=== PATIENT | male | born 1950 | race Caucasian/White ===

== ENCOUNTER 2020-07-20 21:13 | Emergency (ER) | payer MEDICARE, BC ==
[2020-07-20] MEDS ORDERED: Sodium Chloride 0.9% 2.5 ML Syringe FLUSH PRN (21:17)
[2020-07-20] MEDS ORDERED: Sodium Chloride 0.9% 10 ML Syringe FLUSH PRN (21:17)
[2020-07-20] MEDS ORDERED: Aspirin 81 MG Tab.Chew PO ONE (21:17)
--- NOTE | 2020-07-20 21:20 | EDM.PDOC ---
ED HPI GENERAL MEDICAL PROBLEM - General Stated Complaint: CHEST PAIN Time Seen by Provider: 07/20/20 21:14 - History of Present Illness INITIAL COMMENTS - FREE TEXT/NARRATIVE: History of present illness: [] This patient reports chest pressure or pain. It started half an hour before arrival while he was sitting down playing cards. Is better with activity. Its not associated with diaphoresis nausea or shortness of breath. The pain is rather constant was not terribly severe and is much better when he moves around. The patient is a non-smoker and takes only aspirin and nonsteroidal anti- inflammatory medicine. He is not treated for diabetes cholesterol or blood pressure. The patient's father in his 40s of a myocardial infarction but his father was a smoker. Review of systems: As per history of present illness and below otherwise all systems reviewed and negative. Past medical history: As per history of present illness and as reviewed below otherwise noncontributory. Surgical history: As per history of present illness and as reviewed below otherwise noncontributory. Social history: No reported history of drug or alcohol abuse. Family history: As per history of present illness and as reviewed below otherwise noncontribu tory. Physical exam: Constitutional - well developed, well-nourished and in no acute distress HEENT - normocephalic, no evidence of trauma - external nose and mouth normal - no mass in neck and no JVD - mucosae moist EYES - full EOM, PERRL, no icterus - no evidence of inflammation, injection, or drainage Respiratory - no respiratory distress, equal bilateral expansion, lungs clear to auscultation and no abnormal lung sounds Cardiovascular - Regular Rhythm with S1 and S2 appreciated and no murmur, gallop or rub. GI - abdomen soft without distension or organomegaly - normal bowel sounds - no guard or rebound Musculoskeletal no gross deformity of long bones or joints - no tenderness, swelling or edema Neurologic - Alert and oriented times four - CN II-XII grossly intact - motor sensory and coordination symmetrically normal Psychiatric - appropriate mood and affect with normal thought content Hematologic - No petechiae or purpura - mucosa appropriate color and sclera not pale - normal nail bed color and refill Integument - no rash or evidence of trauma - normal turgor Diagnostics: [] Therapeutics: [] Impression: [] Plan: [] Definitive disposition and diagnosis as appropriate pending reevaluation and review of above. chest Pain Score (Numeric/FACES): 7 - Related Data Allergies Allergy/AdvReac Type Severity Reaction Status Date / Time No Known Allergies Allergy Verified 07/20/20 21:22 Home Meds: Home Meds Aspirin [Jasmeet Chewable Aspirin] 81 mg PO DAILY 09/07/14 [History] Celecoxib [CeleBREX] 100 mg PO DAILY 09/07/14 [History] Glucosamine [Glucosamine Sulfate] 0 07/20/20 [History] LORazepam [Ativan] 0.5 mg PO TID PRN #12 tab 07/20/20 [Rx] Omeprazole Magnesium [Prilosec Otc] 20 mg PO DAILY #30 tablet. 07/20/20 [Rx] ED ROS GENERAL - Review of Systems Review Of Systems: Comprehensive ROS is negative, except as noted in HPI. ED EXAM, GENERAL - Physical Exam Exam: See Below Free Text/Narrative:: My physical exam is in the HPI #1 Interpretation EKG Interpretation Comments: EG -normal sinus rhythm heart rate 84 and OK interval 162. [place] is 27. The QT duration is 421. It is 1 or more PVCs. QRS is essentially normal with minimal ST depression in V3 and V4. ST and T are otherwise normal. Impression cannot rule out mild ischemia in the anterior leads. No obvious acute injury no prior for comparison Course - Vital Signs Last Recorded V/S: Last Vital Signs Temp 36.6 C 07/20/20 21:24 Pulse 78 07/20/20 22:29 Resp 18 07/20/20 22:29 BP 141/75 H 07/20/20 23:01 Pulse Ox 97 07/20/20 22:29 - Orders/Labs/Meds Orders: Active Orders 24 hr Category Date Time Status EKG Documentation Completion [RC] AM Care 07/20/20 21:17 Active Sodium Chloride 0.9% [Saline Flush] Med 07/20/20 21:17 Active 10 ml FLUSH ASDIRECTED PRN Sodium Chloride 0.9% [Saline Flush] Med 07/20/20 21:17 Active 2.5 ml FLUSH ASDIRECTED PRN Saline Lock Insert [OM.PC] Stat Oth 07/20/20 21:17 Ordered Medication Orders Sodium Chloride (Saline Flush) 10 ml FLUSH ASDIRECTED PRN PRN Reason: Keep Vein Open Last Admin: 07/20/20 21:56 Dose: 10 ml Documented by: MOSES Sodium Chloride (Saline Flush) 2.5 ml FLUSH ASDIRECTED PRN PRN Reason: Keep Vein Open Last Admin: 07/20/20 21:56 Dose: 2.5 ml Documented by: MOSES Labs: Laboratory Tests 07/20/20 07/20/20 07/20/20 Range/Units 21:23 21:23 22:55 WBC 9.06 (4.0-11.0) K/uL RBC 5.07 (4.50-5.90) M/uL Hgb 16.5 (13.0-17.0) g/dL Hct 49.7 (38.0-50.0) % MCV 98.0 (80.0-98.0) fL MCH 32.5 H (27.0-32.0) pg MCHC 33.2 (31.0-37.0) g/dL RDW Std Deviation 50.7 (28.0-62.0) fl RDW Coeff of Todd 14 (11.0-15.0) % Plt Count 205 (150-400) K/uL MPV 12.00 (7.40-12.00) fL Neut % (Auto) 56.6 (48.0-80.0) % Lymph % (Auto) 22.7 (16.0-40.0) % [place] % (Auto) 15.2 H (0.0-15.0) % Eos % (Auto) 5.2 (0.0-7.0) % Baso % (Auto) 0.3 (0.0-1.5) % Neut # (Auto) 5.1 (1.4-5.7) K/uL Lymph # (Auto) 2.1 (0.6-2.4) K/uL [place] # (Auto) 1.4 H (0.0-0.8) K/uL Eos # (Auto) 0.5 (0.0-0.7) K/uL Baso # (Auto) 0.0 (0.0-0.1) K/uL Nucleated RBC % 0.0 /100WBC Nucleated RBCs # 0 K/uL Sodium 145 (136-148) mmol/L Potassium 3.5 (3.5-5.1) mmol/L Chloride 103 (98-107) mmol/L Carbon Dioxide 30.4 (21.0-32.0) mmol/L BUN 22 H (7.0-18.0) mg/dL Creatinine 1.2 (0.8-1.3) mg/dL Est Cr Clr Drug Dosing 71.16 mL/min Estimated GFR (MDRD) 59.7 ml/min Glucose 89 (74-106) mg/dL Calcium 9.2 (8.5-10.1) mg/dL Total Bilirubin 0.9 (0.2-1.0) mg/dL AST 20 (15-37) IU/L ALT 28 (14-63) IU/L Alkaline Phosphatase 74 (46-116) U/L Troponin I < 0.050 < 0.050 (0.000-0.056) ng/mL Total Protein 7.8 (6.4-8.2) g/dL Albumin 4.3 (3.4-5.0) g/dL Globulin 3.5 (2.6-4.0) g/dL Albumin/Globulin Ratio 1.2 (0.9-1.6) Meds: Medications Generic Name Dose Route Start Last Admin Trade Name Freq PRN Reason Stop Dose Admin Sodium Chloride 10 ml 07/20/20 21:17 07/20/20 21:56 Saline Flush FLUSH 10 ml ASDIRECTED PRN Administration Keep Vein Open Sodium Chloride 2.5 ml 07/20/20 21:17 07/20/20 21:56 Saline Flush FLUSH 2.5 ml ASDIRECTED PRN Administration Keep Vein Open Discontinued Medications Generic Name Dose Route Start Last Admin Trade Name Danilo PRN Reason Stop Dose Admin Aspirin 243 mg 07/20/20 21:17 07/20/20 21:34 Aspirin PO 07/20/20 21:18 81 mg ONETIME ONE Administration Al Hydroxide/Mg Hydroxide 15 0 ml 07/20/20 22:20 07/20/20 22:28 ml/ Lidocaine HCl 5 ml PO 07/20/20 22:21 1 each ONETIME ONE Administration Lorazepam 0.5 mg 07/20/20 21:46 07/20/20 21:55 Ativan IVPUSH 07/20/20 21:47 0.5 mg ONETIME ONE Administration Departure - Departure Time of Disposition: 23:30 Disposition: Home, Self-Care 01 Condition: Good Clinical Impression: Chest pain, GERD (gastroesophageal reflux disease) - Discharge Information Prescriptions: LORazepam [Ativan] 0.5 mg PO TID PRN #12 tab PRN Reason: Anxiety Omeprazole Magnesium [Prilosec Otc] 20 mg PO DAILY #30 tablet. Instructions: Indigestion, [id number], Nonspecific Chest Pain, Adult, [id number] Referrals: Zak Tello MD [Primary Care Provider] - Additional Instructions: [facility] - Primary Care [address] [place] [id number] [address] The following information is given to patients seen in the emergency department who are being discharged to home. This information is to outline your options for follow-up care. We provide all patients seen in our emergency department with a follow-up referral. The need for follow-up, as well as the timing and circumstances, are variable depending upon the specifics of your emergency department visit. If you don't have a primary care physician on staff, we will provide you with a referral. We always advise you to contact your personal physician following an emergency department visit to inform them of the circumstance of the visit and for follow-up with them and/or the need for any referrals to a consulting specialist. The emergency department will also refer you to a specialist when appropriate. This referral assures that you have the opportunity for follow-up care with a specialist. All of these measure are taken in an effort to provide you with optimal care, which includes your follow-up. Under all circumstances we always encourage you to contact your private physician who remains a resource for coordinating your care. When calling for follow-up care, please make the office aware that this follow-up is from your recent emergency room visit. If for any reason you are refused follow-up, please contact the [facility] Emergency Department at and asked to speak to the emergency department charge nurse. Sepsis Event Note (ED) - Focused Exam Vital Signs: Vital Signs Temp Pulse Resp BP Pulse Ox 07/20/20 23:01 141/75 H 07/20/20 22:29 78 18 141/88 H 97 07/20/20 22:09 73 18 168/93 H 97 07/20/20 21:24 36.6 C 87 20 176/107 H 98 - My Orders Last 24 Hours: My Active Orders 07/20/20 21:17 EKG Documentation Completion [RC] AM Sodium Chloride 0.9% [Saline Flush] 10 ml FLUSH ASDIRECTED PRN Sodium Chloride 0.9% [Saline Flush] 2.5 ml FLUSH ASDIRECTED PRN Saline Lock Insert [OM.PC] Stat - Assessment/Plan Last 24 Hours: My Active Orders 07/20/20 21:17 EKG Documentation Completion [RC] AM Sodium Chloride 0.9% [Saline Flush] 10 ml FLUSH ASDIRECTED PRN Sodium Chloride 0.9% [Saline Flush] 2.5 ml FLUSH ASDIRECTED PRN Saline Lock Insert [OM.PC] Stat
[2020-07-20] MEDS ORDERED: LORazepam 2 MG/ML SDV IVPUSH ONE (21:46)
[2020-07-20 22:17] LABS: CARBON DIOXIDE,CO2 30.4 mmol/L (21.0-32.0); CHLORIDE,CL 103 mmol/L (98-107); GLUCOSE RANDOM 89 mg/dL (74-106); POTASSIUM,K 3.5 mmol/L (3.5-5.1); SODIUM,NA 145 mmol/L (136-148)
[2020-07-20] MEDS ORDERED: Alum Hydrox/Mag Hydrox/Simeth 15 ML, Lidocaine 2% 5 ML PO ONE ×2 (22:20)
[2020-07-20 22:22] LABS: BLOOD UREA NITROGEN,BUN 22 mg/dL (7.0-18.0)
--- NOTE | 2020-07-20 22:24 | CR ---
INDICATION: Chest pain COMPARISON: None TECHNIQUE: Single-view portable chest radiograph FINDINGS: TUBES AND LINES: None. HEART AND MEDIASTINUM: The heart size is normal. The mediastinal contour appears normal for patient age. LUNGS AND PLEURAL SPACES: The lungs appear normal.The pleural spaces are unremarkable. OSSEOUS STRUCTURES: Age-appropriate appearance. No acute focal finding. IMPRESSION: Normal single-view portable chest radiograph. Dictated by Benny Arvizu MD @ Jul 20 2020 10:21PM Signed by Dr. Benny Arvizu @ Jul 20 2020 10:22PM
[2020-07-20 23:51] VITALS: BP 147/87; PULSE 71
== END 2020-07-20 23:45 | disposition home or self-care (01) ==
LOC: MW.ED 21:13
DX: K21.9 Gastro-esophageal reflux disease without esophagitis (principal)
CPT/HCPCS: 36415; 71045; 80053; 84484; 85025; 93005; 96374; 99285; A9270; J2060; 93010; 99284

== ENCOUNTER 2020-07-27 18:14 | Emergency (ER) | payer MEDICARE, BC ==
--- NOTE | 2020-07-27 18:48 | EDM.PDOC ---
<Casa Nowak - Last Filed: 07/27/20 20:22> ED HPI GENERAL MEDICAL PROBLEM - General Chief Complaint: Chest Pain Stated Complaint: CHEST PAIN Time Seen by Provider: 07/27/20 18:25 Source of Information: Reports: Patient History Limitations: Reports: No Limitations - History of Present Illness INITIAL COMMENTS - FREE TEXT/NARRATIVE: Patient is a 70-year-old male who presents today for chest pain. Patient was at the cardiology clinic with cardiology states that he had abnormal stress test with some inferior and septal wall reversible dynamic changes. He wanted patient come to the ER because patient is now having more frequent chest pain. Patient that has been taking 1 nitro a day to the chest pain. Nitro no me to scale the chest pain. Patient states he is scheduled to see someone and Sukhjinder for possible catheterization. Patient currently on examination has no chest pain. Patient states that sometimes when he gets stressed the chest pain comes more. Patient denies any chest pain or exertion or shortness of breath. chest Pain Score (Numeric/FACES): 3 - Related Data Allergies Allergy/AdvReac Type Severity Reaction Status Date / Time No Known Allergies Allergy Verified 07/20/20 21:22 Home Meds: Home Meds Aspirin [Jasmeet Chewable Aspirin] 81 mg PO DAILY 09/07/14 [History] Celecoxib [CeleBREX] 100 mg PO DAILY 09/07/14 [History] Glucosamine [Glucosamine Sulfate] 0 07/20/20 [History] LORazepam [Ativan] 0.5 mg PO TID PRN #12 tab 07/20/20 [Rx] Isosorbide Mononitrate [Imdur] 30 mg PO DAILY 07/27/20 [History] Nitroglycerin [Nitrostat] 0.4 mg SL ASDIRECTED PRN 07/27/20 [History] timoloL maleate [Timoptic 0.25% Opth Soln] 5 ml EYEBOTH ASDIRECTED PRN 07/27/20 [History] Past Medical History HEENT History: Reports: Cataract, Hard of Hearing, Impaired Vision Cardiovascular History: Reports: Arrhythmia, Other (See Below) Other Cardiovascular History: positive stress test 07/25/2020 Respiratory History: Reports: None Gastrointestinal History: Reports: None Genitourinary History: Reports: None Musculoskeletal History: Reports: None Neurological History: Reports: None Psychiatric History: Reports: None Endocrine/Metabolic History: Reports: None Hematologic History: Reports: None Immunologic History: Reports: None Oncologic (Cancer) History: Reports: None Dermatologic History: Reports: None - Infectious Disease History Infectious Disease History: Reports: Chicken Pox, Influenza - Past Surgical History Head Surgeries/Procedures: Reports: None HEENT Surgical History: Reports: None GI Surgical History: Reports: Cholecystectomy Musculoskeletal Surgical History: Reports: Hip Replacement Other Musculoskeletal Surgeries/Procedures:: right hip replacement Other Oncologic Surgeries/Procedures: pt reports skin cancer removal in [facility] Social & Family History - Family History Family Medical History: No Pertinent Family History ED ROS GENERAL - Review of Systems Review Of Systems: See Below Constitutional: Reports: No Symptoms HEENT: Reports: No Symptoms Respiratory: Reports: No Symptoms Cardiovascular: Reports: No Symptoms Endocrine: Reports: No Symptoms GI/Abdominal: Reports: No Symptoms : Reports: No Symptoms Musculoskeletal: Reports: No Symptoms Skin: Reports: No Symptoms Neurological: Reports: No Symptoms Psychiatric: Reports: No Symptoms Hematologic/Lymphatic: Reports: No Symptoms Immunologic: Reports: No Symptoms ED EXAM, GENERAL - Physical Exam Exam: See Below Exam Limited By: No Limitations General Appearance: Alert, No Apparent Distress Eye Exam: Bilateral Eye: EOMI, PERRL Respiratory/Chest: No Respiratory Distress, Lungs Clear Cardiovascular: Normal Peripheral Pulses, Regular Rate, Rhythm GI/Abdominal: Normal Bowel Sounds, Soft, Non-Tender Extremities: Normal Range of Motion Neurological: Alert, Oriented, CN II-XII Intact, Normal Cognition, Normal Gait Course - Re-Assessments/Exams Free Text/Narrative Re-Assessment/Exam: 07/27/20 20:20 Pt to be signed out to on coming physician. Departure - Departure Time of Disposition: 20:21 Disposition: DC/Tfer to Acute Hospital 02 Condition: Good Clinical Impression: Chest pain, Acute coronary syndrome, Unstable angina, 2019 novel coronavirus disease (COVID-19) - Discharge Information *PRESCRIPTION DRUG MONITORING PROGRAM REVIEWED*: Not Applicable *COPY OF PRESCRIPTION DRUG MONITORING REPORT IN PATIENT ZHAO: Not Applicable Referrals: Zak Tello MD [Primary Care Provider] - Forms: ED Department Discharge Sepsis Event Note (ED) - Evaluation Sepsis Screening Result: No Definite Risk - Assessment/Plan Admission H&P: Please use this note as an admission H&P Plan: Patient is a 70-year-old male presents today for chest pain. Patient currently has no chest pain but due to him having a abnormal stress test and increased frequency of his chest pain his detention deputy wanted him checked out today. Patient has elevated heart score as well will send labs troponin and EKG and reassess. Pt's detention deputy in [facility] is Dr. Ramon <Maynor Valdivia - Last Filed: 07/28/20 02:09> ED HPI GENERAL MEDICAL PROBLEM - History of Present Illness INITIAL COMMENTS - FREE TEXT/NARRATIVE: 7:30 PM: Signout received by me at 7 PM. Chart reviewed and patient examined. Patient presents ER today secondary to evaluation for increasing chest pain/unstable angina. Patient reports over the last several days he is required utilization of increased amounts of nitroglycerin than usual. Patient reports that he has been using approximately 2 sublingual nitroglycerin daily to relieve alleviate his chest discomfort. Patient reports that the pain feels like a discomfort in his chest. Patient denies any pain rating down his jaw, arm, back. Patient denies any diaphoresis. Patient admits to some shortness of breath. Patient reports that the pain is not exertional in nature and occurs at times while he is at rest. Patient reports that he has been evaluated by Dr. Gomez here at [place] and had a abnormal stress test that revealed reversible changes in the inferior septal wall. Patient is scheduled to go to [facility] for a cardiac catheterization on Thursday. Patient reports that he was called by his detention deputy Dr. Gomez and instructed to go to the ED for further evaluation secondary to his increased chest pain and increased use of his nitroglycerin. EKG: As interpreted by ER physician: Shea: Nonspecific ST-T wave abnormalities Normal axis No evidence of ST elevation VA Normal sinus rhythm with multiple PACs and compensatory pauses and heart rate of 99. Chest Xray: Normal cardiac silhouette No infiltrates or effusions identified. No PTX No evidence of acute bony fracture. As interpreted by ER MD: Shea Clements case with Dr. Gomez who feels that the patient needs to be transferred to [facility] for further evaluation of his chest pain. He feels that the patient will likely need an urgent cardiac catheterization given his unstable angina and persistent episodes of chest pain. He does not feel admission to [facility] would be appropriate at this time given the abnormal exercise stress test that he had this week. Pts coronavirus test is positive. Patient did have 2 episodes of intermittent chest pain here in the ED that was resolved with nitroglycerin x2 tablets. Patient had repeat EKG without any changes from the initial presenting E KG. Case has been discussed with Dr. Virk at [facility] who has agreed to assist us with transfer of patient and inpatient level of care for his chest pain to the coronavirus unit. Critical Care: The high probability of sudden, clinically significant deterioration in the patient's condition required the highest level of my pr eparedness to intervene urgently. The services I provided to this patient were to treat and/or prevent clinically significant deterioration. Services included the following: chart data review, reviewing nursing notes and/or old charts, documentation time, internet marketing consultant collaboration regarding findings and treatment options, medication orders and management, direct patient care, vital sign assessments and ordering, interpreting and reviewing diagnostic studies/lab tests. Aggregate critical care time includes only time during which I was engaged inwork directly related to the patient's care, as described above, whether at the bedside or elsewhere in the Emergency Department. It did not include time spent performing other reported procedures or the services of residents, students, nurses or physician assistants. Critical Care Time: 35 minutes #1 Interpretation EKG Interpretation Comments: EKG: As interpreted by ER physician: Shea: Nonspecific ST-T wave abnormalities Normal axis No evidence of ST elevation VA Normal sinus rhythm with multiple PACs at a rate of 99 bpm #2 Interpretation EKG Interpretation Comments: EKG: As interpreted by ER physician: Shea: Nonspecific ST-T wave abnormalities Normal axis No evidence of ST elevation VA Normal sinus rhythm heart rate of 88 with multiple PVCs and PACs. #3 Interpretation EKG Interpretation Comments: EKG: As interpreted by ER physician: Shea: Nonspecific ST-T wave abnormalities Normal axis No evidence of ST elevation VA Normal sinus rhythm heart rate of 84 with 2 PVCs and multiple PACs. Course - Vital Signs Last Recorded V/S: Last Vital Signs Temp 98.2 F 07/28/20 01:33 Pulse 103 H 07/28/20 01:33 Resp 16 07/28/20 01:33 BP 135/87 07/28/20 01:33 Pulse Ox 94 L 07/28/20 01:33 - Orders/Labs/Meds Orders: Active Orders 24 hr Category Date Time Status EKG Documentation Completion [RC] STAT Care 07/27/20 18:26 Active Heparin Sodium/0.45% NaCl [Heparin 25,000 Units in 1/2 Med 07/27/20 23:15 Active NS 500 ML] 500 ml IV TITRATE Medication Orders Heparin Sodium/Sodium Chloride (Heparin 25,000 Units In 1/2 Ns 500 Ml) 500 mls @ 26.671 mls/hr IV TITRATE CHRISTY; Protocol Last Admin: 07/27/20 23:28 Dose: 12 units/kg/hr, 26.671 mls/hr Documented by: HARVEY Cosigned by: [id number] Labs: Laboratory Tests 07/27/20 07/27/20 07/27/20 Range/Units 18:30 18:30 18:30 WBC 8.35 (4.0-11.0) K/uL RBC 4.72 (4.50-5.90) M/uL Hgb 15.3 (13.0-17.0) g/dL Hct 46.0 (38.0-50.0) % MCV 97.5 (80.0-98.0) fL MCH 32.4 H (27.0-32.0) pg MCHC 33.3 (31.0-37.0) g/dL RDW Std Deviation 51.7 (28.0-62.0) fl RDW Coeff of Todd 14 (11.0-15.0) % Plt Count 144 L (150-400) K/uL MPV 12.00 (7.40-12.00) fL Neut % (Auto) 63.9 (48.0-80.0) % Lymph % (Auto) 16.3 (16.0-40.0) % [place] % (Auto) 14.3 (0.0-15.0) % Eos % (Auto) 5.3 (0.0-7.0) % Baso % (Auto) 0.2 (0.0-1.5) % Neut # (Auto) 5.3 (1.4-5.7) K/uL Lymph # (Auto) 1.4 (0.6-2.4) K/uL [place] # (Auto) 1.2 H (0.0-0.8) K/uL Eos # (Auto) 0.4 (0.0-0.7) K/uL Baso # (Auto) 0.0 (0.0-0.1) K/uL Nucleated RBC % 0.0 /100WBC Nucleated RBCs # 0 K/uL INR 1.03 APTT 25.2 (18.6-31.3) SEC Sodium 143 (136-148) mmol/L Potassium 3.6 (3.5-5.1) mmol/L Chloride 104 (98-107) mmol/L Carbon Dioxide 25.9 (21.0-32.0) mmol/L BUN 16 (7.0-18.0) mg/dL Creatinine 1.2 (0.8-1.3) mg/dL Est Cr Clr Drug Dosing 71.16 mL/min Estimated GFR (MDRD) 59.7 ml/min Glucose 98 (74-106) mg/dL Calcium 9.2 (8.5-10.1) mg/dL Troponin I < 0.050 (0.000-0.056) ng/mL SARS-CoV-2 RNA (CHERRIE) (NEGATIVE) 07/27/20 Range/Units 20:45 WBC (4.0-11.0) K/uL RBC (4.50-5.90) M/uL Hgb (13.0-17.0) g/dL Hct (38.0-50.0) % MCV (80.0-98.0) fL MCH (27.0-32.0) pg MCHC (31.0-37.0) g/dL RDW Std Deviation (28.0-62.0) fl RDW Coeff of [place] (11.0-15.0) % Plt Count (150-400) K/uL MPV (7.40-12.00) fL Neut % (Auto) (48.0-80.0) % Lymph % (Auto) (16.0-40.0) % [place] % (Auto) (0.0-15.0) % Eos % (Auto) (0.0-7.0) % Baso % (Auto) (0.0-1.5) % Neut # (Auto) (1.4-5.7) K/uL Lymph # (Auto) (0.6-2.4) K/uL [place] # (Auto) (0.0-0.8) K/uL Eos # (Auto) (0.0-0.7) K/uL Baso # (Auto) (0.0-0.1) K/uL Nucleated RBC % /100WBC Nucleated RBCs # K/uL INR APTT (18.6-31.3) SEC Sodium (136-148) mmol/L Potassium (3.5-5.1) mmol/L Chloride (98-107) mmol/L Carbon Dioxide (21.0-32.0) mmol/L BUN (7.0-18.0) mg/dL Creatinine (0.8-1.3) mg/dL Est Cr Clr Drug Dosing mL/min Estimated GFR (MDRD) ml/min Glucose (74-106) mg/dL Calcium (8.5-10.1) mg/dL Troponin I (0.000-0.056) ng/mL SARS-CoV-2 RNA (CHERRIE) POSITIVE H (NEGATIVE) Meds: Medications Generic Name Dose Route Start Last Admin Trade Name Danilo PRN Reason Stop Dose Admin Heparin Sodium/Sodium Chloride 500 mls @ 26.671 mls/hr 07/27/20 23:15 07/27/20 23:28 Heparin 25,000 Units In 1/2 Ns 500 Ml IV 12 units/kg/hr TITRATE CHRISTY 26.671 mls/hr Administration Protocol 12 UNITS/KG/HR Discontinued Medications Generic Name Dose Route Start Last Admin Trade Name Gianlucaq PRN Reason Stop Dose Admin Heparin Sodium (Porcine) 4,000 units 07/27/20 23:15 07/27/20 23:25 Heparin Sodium IVPUSH 07/27/20 23:16 4,000 units BOLUS ONE Administration Protocol Nitroglycerin 0.4 mg 07/27/20 22:50 07/28/20 00:03 Nitrostat SL 07/27/20 22:51 Not Given ONETIME ONE Departure - Departure Condition: Good Sepsis Event Note (ED) - Focused Exam Vital Signs: Vital Signs Temp Pulse Resp BP Pulse Ox 07/28/20 01:33 98.2 F 103 H 16 135/87 94 L 07/28/20 00:55 97.4 F 87 17 134/82 94 L 07/27/20 22:49 20 171/110 H 94 L 07/27/20 22:00 86 17 155/102 H 96 07/27/20 21:30 82 17 128/94 H 96 12/04/20 20:45 89 17 139/86 96 07/27/20 20:15 65 17 157/88 H 96 07/27/20 19:45 91 17 146/100 H 99 07/27/20 19:04 98.9 F 71 20 146/90 H 96 07/27/20 18:26 97.2 F 81 18 158/90 H 96 - My Orders Last 24 Hours: My Active Orders 07/27/20 23:15 Heparin Sodium/0.45% NaCl [Heparin 25,000 Units in 1/2 NS 500 ML] 500 ml IV TITRATE - Assessment/Plan Last 24 Hours: My Active Orders 07/27/20 23:15 Heparin Sodium/0.45% NaCl [Heparin 25,000 Units in 1/2 NS 500 ML] 500 ml IV TITRATE
[2020-07-27 19:14] LABS: BLOOD UREA NITROGEN,BUN 16 mg/dL (7.0-18.0); CARBON DIOXIDE,CO2 25.9 mmol/L (21.0-32.0); CHLORIDE,CL 104 mmol/L (98-107); GLUCOSE RANDOM 98 mg/dL (74-106); POTASSIUM,K 3.6 mmol/L (3.5-5.1); SODIUM,NA 143 mmol/L (136-148)
--- NOTE | 2020-07-27 19:47 | CR ---
Indication: Chest pain Comparison: Single view chest July 20, 2020 Technique: PA and Lateral views chest Findings: There is mild hyperinflation and chronic interstitial change. There is no focal consolidation, effusion, or pneumothorax. The cardiomediastinal silhouette is within normal limits. The bony thorax is grossly intact. Impression: Mild chronic interstitial changes without dense consolidation. Dictated by Jan Ac MD @ Jul 27 2020 7:44PM Signed by Dr. Jan Ac @ Jul 27 2020 7:45PM
[2020-07-27] MEDS ORDERED: Nitroglycerin 0.4 MG Tab.SL SL ONE (22:50)
[2020-07-27] MEDS ORDERED: Heparin Sodium 5,000 Units/ML Vial IVPUSH ONE (23:15)
[2020-07-27] MEDS ORDERED: Heparin Sodium/0.45% NaCl 500 ML IV SCH (23:15)
[2020-07-28 01:33] VITALS: BP 135/87; PULSE 103
== END 2020-07-28 01:55 ==
LOC: MW.ED 18:14
DX: U07.1 COVID-19 (principal); I24.9 Acute ischemic heart disease, unspecified
CPT/HCPCS: 36415; 71046; 80048; 84484; 85025; 85610; 85730; 93005; 96365; 96366; 99285; J1644; U0002; 93010; 99291

== ENCOUNTER 2022-07-21 09:23 | Inpatient (IN) | payer MEDICARE, BC ==
[2022-07-21] MEDS ORDERED: Sodium Chloride 0.9% 1,000 ML IV ONE (09:36)
[2022-07-21] MEDS ORDERED: Sodium Chloride 0.9% 2.5 ML Syringe FLUSH PRN ×2 (09:36→14:04)
[2022-07-21] MEDS ORDERED: Sodium Chloride 0.9% 10 ML Syringe FLUSH PRN ×2 (09:36→14:04)
[2022-07-21 10:17] LABS: POTASSIUM,K 4.1 mmol/L (3.5-5.1)
[2022-07-21 10:27] LABS: CORONAVIRUS COVID-19 NAA POSITIVE (NEGATIVE); INFLUENZA A NAA NEGATIVE (NEGATIVE); INFLUENZA B NAA NEGATIVE (NEGATIVE); RESPIRATORY SYNCYTIAL VIR NAA NEGATIVE (NEGATIVE)
[2022-07-21] MEDS ORDERED: Acetaminophen 325 MG Tab PO ONE (10:48)
[2022-07-21] MEDS ORDERED: Ondansetron 4 MG/2 ML SDV IVPUSH PRN (14:00)
[2022-07-21] MEDS: PAXLOVID PO SCH (14:58)
[2022-07-21] MEDS: Enoxaparin 40 MG/0.4 ML Syringe SUBCUT SCH (14:58)
[2022-07-21] MEDS: Acetaminophen 325 MG Tab PO PRN (18:26)
[2022-07-21] MEDS: Donepezil 10 MG Tab PO SCH (20:13)
[2022-07-21] MEDS: atorvaSTATin 40 MG Tab PO SCH (20:13)
[2022-07-21] MEDS: Latanoprost 0.005% Ophth Soln 2.5 ML Bottle EYEBOTH SCH (20:14)
[2022-07-22] MEDS: Acetaminophen 325 MG Tab PO PRN ×2 (00:46→11:36)
[2022-07-22] MEDS: Pantoprazole 40 MG Tab.CR PO SCH (06:38)
[2022-07-22] MEDS: PAXLOVID PO SCH ×3 (06:39→21:48)
[2022-07-22 07:09] LABS: POTASSIUM,K 3.5 mmol/L (3.5-5.1)
[2022-07-22] MEDS: Metoprolol Succinate 25 MG Tab.ER PO SCH (08:56)
[2022-07-22] MEDS: Aspirin 81 MG Tab.Chew PO SCH (08:56)
[2022-07-22] MEDS: Phosphorus #1 250 MG Tab PO SCH ×3 (08:56→17:26)
[2022-07-22] MEDS: Prasugrel Hcl [Effient] 10 MG Tablet PO SCH (08:57)
[2022-07-22] MEDS ORDERED: Benzonatate 100 MG Cap PO PRN (09:03)
[2022-07-22] MEDS ORDERED: guaiFENesin/Dextromethorphan 100-10 MG/5 ML Soln 10 ML Cup PO PRN (09:03)
[2022-07-22] MEDS ORDERED: Benzocaine/Cetylpyridinium/Menthol Lozenge MUCMEM PRN (09:03)
[2022-07-22] MEDS: Enoxaparin 40 MG/0.4 ML Syringe SUBCUT SCH (14:15)
[2022-07-22] MEDS: atorvaSTATin 40 MG Tab PO SCH (21:46)
[2022-07-22] MEDS: Donepezil 10 MG Tab PO SCH (21:46)
[2022-07-22] MEDS: Latanoprost 0.005% Ophth Soln 2.5 ML Bottle EYEBOTH SCH (21:50)
[2022-07-23] MEDS: Phosphorus #1 250 MG Tab PO SCH (00:01)
[2022-07-23] MEDS: Pantoprazole 40 MG Tab.CR PO SCH (06:49)
[2022-07-23 08:53] LABS: POTASSIUM,K 3.9 mmol/L (3.5-5.1)
[2022-07-23 08:54] LABS: CARBON DIOXIDE,CO2 24.3 mmol/L (21.0-32.0)
[2022-07-23] MEDS: PAXLOVID PO SCH ×2 (09:00→21:22)
[2022-07-23] MEDS: Metoprolol Succinate 25 MG Tab.ER PO SCH (09:01)
[2022-07-23] MEDS: Prasugrel Hcl [Effient] 10 MG Tablet PO SCH (09:01)
[2022-07-23] MEDS: Aspirin 81 MG Tab.Chew PO SCH (09:01)
[2022-07-23] MEDS: Enoxaparin 40 MG/0.4 ML Syringe SUBCUT SCH (14:42)
[2022-07-23] MEDS: Donepezil 10 MG Tab PO SCH (21:21)
[2022-07-23] MEDS: Latanoprost 0.005% Ophth Soln 2.5 ML Bottle EYEBOTH SCH (21:22)
[2022-07-24] MEDS: Pantoprazole 40 MG Tab.CR PO SCH (06:32)
[2022-07-24 07:11] LABS: CARBON DIOXIDE,CO2 26.1 mmol/L (21.0-32.0); POTASSIUM,K 3.7 mmol/L (3.5-5.1)
[2022-07-24] MEDS: Metoprolol Succinate 25 MG Tab.ER PO SCH (08:47)
[2022-07-24] MEDS: Aspirin 81 MG Tab.Chew PO SCH (08:47)
[2022-07-24] MEDS: PAXLOVID PO SCH (08:49)
[2022-07-24] MEDS: Prasugrel Hcl [Effient] 10 MG Tablet PO SCH (08:49)
[2022-07-24 11:45] VITALS: BP 99/64; PULSE 64
[2022-07-24] MEDS: Enoxaparin 40 MG/0.4 ML Syringe SUBCUT SCH (15:14)
== END 2022-07-24 15:09 | disposition home or self-care (01) | DRG 178 ==
LOC: MW.ED 09:23 → MW.MS 11:43
PROVIDERS: ADMIT Internal Medicine; ATTEND Internal Medicine
DX: U07.1 COVID-19 (principal); E86.0 Dehydration; R53.1 Weakness; R26.89 Other abnormalities of gait and mobility; G93.49 Other encephalopathy; I25.10 Atherosclerotic heart disease of native coronary artery without angina pectoris; I10 Essential (primary) hypertension; R26.81 Unsteadiness on feet; G31.84 Mild cognitive impairment of uncertain or unknown etiology; H54.7 Unspecified visual loss; H91.90 Unspecified hearing loss, unspecified ear; I49.9 Cardiac arrhythmia, unspecified; Z95.5 Presence of coronary angioplasty implant and graft; Z86.19 Personal history of other infectious and parasitic diseases; Z79.899 Other long term (current) drug therapy; I25.2 Old myocardial infarction; Z79.82 Long term (current) use of aspirin; Z90.49 Acquired absence of other specified parts of digestive tract
CPT/HCPCS: 0241U; 36415; 70450; 71045; 80048; 80053; 81001; 82550; 82607; 83735; 84100; 85025; 93005; 97110; 97162; 97530; 96360; 99285-25; A9270-GY; J1650; J3490; J7030

== ENCOUNTER 2024-04-09 09:40 | Inpatient (IN) | payer MEDICARE, BC ==
[2024-04-09 10:36] LABS: APPEARANCE,URINE CLEAR; BILIRUBIN,URINE NEGATIVE (NEGATIVE); COLOR,URINE YELLOW; GLUCOSE,URINE NEGATIVE (NEGATIVE); KETONES,URINE NEGATIVE (NEGATIVE); LEUKOCYTE ESTERASE,URINE NEGATIVE (NEGATIVE); NITRITE,URINE NEGATIVE (NEGATIVE); OCCULT BLOOD,URINE TRACE-INTACT (NEGATIVE); PH,URINE 6.5 (5.0-8.0); PROTEIN,URINE NEGATIVE (NEGATIVE)
[2024-04-09] MEDS: Erythromycin Base 0.5% Ophth Oint 1 GM Tube EYEBOTH ONE (10:38)
[2024-04-09] MEDS: Sodium Chloride 0.9% 1,000 ML IV ONE (10:38)
[2024-04-09 10:45] LABS: BACTERIA,URINE RARE (NEGATIVE); EPITHELIAL CELLS,URINE RARE (NONE-FEW); RBC,URINE 0-2 (0-2/HPF); WBC,URINE 0-1 (0-5/HPF)
[2024-04-09 10:51] LABS: CORONAVIRUS COVID-19 NAA POSITIVE (NEGATIVE); INFLUENZA A NAA NEGATIVE (NEGATIVE); INFLUENZA B NAA NEGATIVE (NEGATIVE)
[2024-04-09 10:54] LABS: BASOPHILS ABSOLUTE AUTO 0.03 K/uL (0.00-0.20); BASOPHILS PERCENT AUTO 0.3 % (0.0-1.0); EOSINOPHILS ABSOLUTE AUTO 0.05 K/uL (0.00-0.45); EOSINOPHILS PERCENT AUTO 0.5 % (0.0-6.0); HEMATOCRIT 49.3 % (42.0-52.0); HEMOGLOBIN 16.7 g/dL (14.0-18.0); IMMATURE GRAN ABSOLUTE AUTO 0.05 K/uL (0.00-0.05); IMMATURE GRAN PERCENT AUTO 0.5 % (0.0-0.4); LYMPHOCYTES ABSOLUTE AUTO 0.54 K/uL (1.00-4.80); LYMPHOCYTES PERCENT AUTO 5.4 % (24.0-44.0); MEAN CORPUSCULAR HEMOGLOBIN 32.3 pg (28.0-32.0); MEAN CORPUSCULAR HGB CONC 33.9 g/dL (32.0-36.0); MEAN CORPUSCULAR VOLUME 95.4 fL (83.0-99.0); MEAN PLATELET VOLUME 10.8 fL (9.4-12.4); MONOCYTES ABSOLUTE AUTO 0.88 K/uL (0.00-0.80); MONOCYTES PERCENT AUTO 8.7 % (0.0-8.0); NEUTROPHILS ABSOLUTE AUTO 8.54 K/uL (1.80-7.70); NEUTROPHILS PERCENT AUTO 84.6 % (41.0-71.0); PLATELET COUNT,PLT 141 K/uL (150-400); RED BLOOD CELL COUNT 5.17 M/uL (4.52-5.90); WHITE BLOOD CELL COUNT,WBC 10.09 K/uL (3.9-11.3)
[2024-04-09 11:21] LABS: A/G RATIO 1.2 (0.9-1.6); ALBUMIN 4.1 g/dL (3.4-5.0); BILIRUBIN TOTAL 1.9 mg/dL (0.2-1.0); CALCIUM 9.4 mg/dL (8.5-10.1); CARBON DIOXIDE,CO2 30.6 mmol/L (21.0-32.0); CREATININE 1.2 mg/dL (0.8-1.3); EST CRCL DRUG DOSING (CG) 59.28 mL/min; POTASSIUM,K 4.4 mmol/L (3.5-5.1); PROTEIN TOTAL,TP 7.4 g/dL (6.4-8.2)
[2024-04-09] MEDS ORDERED: Ondansetron 4 MG Tab.DIS PO PRN (11:54)
[2024-04-09] MEDS ORDERED: Polyethylene Glycol 3350 Powder 17 GM Packet PO PRN (11:54)
[2024-04-09] MEDS: Acetaminophen 325 MG Tab PO PRN (14:31)
[2024-04-09] MEDS ORDERED: Nitroglycerin 0.4 MG Tab.SL SL PRN (15:08)
[2024-04-09] MEDS: Nirmatrelvir/Ritonavir 300 MG/100 MG Dosepak PO SCH (16:48)
[2024-04-09] MEDS: Enoxaparin 40 MG/0.4 ML Syringe SUBCUT SCH ×2 (16:48→19:48)
[2024-04-09] MEDS: Donepezil 5 MG Tab PO SCH (19:30)
[2024-04-09] MEDS: Latanoprost 0.005% Ophth Soln 2.5 ML Bottle EYEBOTH SCH (19:35)
[2024-04-09] MEDS: Sodium Chloride 0.9% 1,000 ML IV SCH (19:55)
[2024-04-09] MEDS: atorvaSTATin 40 MG Tab PO SCH (20:46)
[2024-04-10] MEDS: Nirmatrelvir/Ritonavir 300 MG/100 MG Dosepak PO SCH (08:57)
[2024-04-10] MEDS: Metoprolol Succinate 25 MG Tab.ER PO SCH (08:59)
[2024-04-10] MEDS: Prasugrel Hcl [Effient] 10 MG Tablet PO SCH (09:00)
[2024-04-10 09:07] LABS: BASOPHILS ABSOLUTE AUTO 0.04 K/uL (0.00-0.20); BASOPHILS PERCENT AUTO 0.5 % (0.0-1.0); HEMATOCRIT 48.2 % (42.0-52.0); HEMOGLOBIN 16.7 g/dL (14.0-18.0); IMMATURE GRAN ABSOLUTE AUTO 0.03 K/uL (0.00-0.05); IMMATURE GRAN PERCENT AUTO 0.4 % (0.0-0.4); LYMPHOCYTES PERCENT AUTO 10.6 % (24.0-44.0); MEAN CORPUSCULAR HEMOGLOBIN 32.2 pg (28.0-32.0); MEAN CORPUSCULAR HGB CONC 34.6 g/dL (32.0-36.0); MEAN CORPUSCULAR VOLUME 92.9 fL (83.0-99.0); MEAN PLATELET VOLUME 10.9 fL (9.4-12.4); MONOCYTES ABSOLUTE AUTO 0.97 K/uL (0.00-0.80); MONOCYTES PERCENT AUTO 12.8 % (0.0-8.0); NEUTROPHILS ABSOLUTE AUTO 5.74 K/uL (1.80-7.70); NEUTROPHILS PERCENT AUTO 75.7 % (41.0-71.0); PLATELET COUNT,PLT 143 K/uL (150-400); RED BLOOD CELL COUNT 5.19 M/uL (4.52-5.90); WHITE BLOOD CELL COUNT,WBC 7.58 K/uL (3.9-11.3)
[2024-04-10 09:37] LABS: A/G RATIO 1.1 (0.9-1.6); ALBUMIN 3.7 g/dL (3.4-5.0); BILIRUBIN TOTAL 1.9 mg/dL (0.2-1.0); CALCIUM 9.1 mg/dL (8.5-10.1); CARBON DIOXIDE,CO2 26.9 mmol/L (21.0-32.0); CREATININE 1.2 mg/dL (0.8-1.3); EST CRCL DRUG DOSING (CG) 59.28 mL/min; POTASSIUM,K 3.8 mmol/L (3.5-5.1); PROTEIN TOTAL,TP 7.2 g/dL (6.4-8.2)
[2024-04-10] MEDS: Albuterol/Ipratropium 3.0-0.5 MG/3 ML Neb Soln NEB SCH (11:58)
[2024-04-10] MEDS: LORazepam 0.5 MG Tab PO PRN (16:06)
[2024-04-10] MEDS: traZODone 50 MG Tab PO SCH (19:34)
[2024-04-10] MEDS: Melatonin 3 MG Tab PO SCH (19:35)
[2024-04-10] MEDS: Benzonatate 100 MG Cap PO PRN (19:35)
[2024-04-11 06:10] LABS: BASOPHILS ABSOLUTE AUTO 0.04 K/uL (0.00-0.20); BASOPHILS PERCENT AUTO 0.4 % (0.0-1.0); EOSINOPHILS ABSOLUTE AUTO 0.02 K/uL (0.00-0.45); EOSINOPHILS PERCENT AUTO 0.2 % (0.0-6.0); HEMATOCRIT 45.3 % (42.0-52.0); HEMOGLOBIN 15.9 g/dL (14.0-18.0); IMMATURE GRAN ABSOLUTE AUTO 0.04 K/uL (0.00-0.05); IMMATURE GRAN PERCENT AUTO 0.4 % (0.0-0.4); LYMPHOCYTES ABSOLUTE AUTO 0.89 K/uL (1.00-4.80); LYMPHOCYTES PERCENT AUTO 9.6 % (24.0-44.0); MEAN CORPUSCULAR HEMOGLOBIN 32.7 pg (28.0-32.0); MEAN CORPUSCULAR HGB CONC 35.1 g/dL (32.0-36.0); MEAN CORPUSCULAR VOLUME 93.2 fL (83.0-99.0); MEAN PLATELET VOLUME 11.4 fL (9.4-12.4); MONOCYTES ABSOLUTE AUTO 1.14 K/uL (0.00-0.80); MONOCYTES PERCENT AUTO 12.2 % (0.0-8.0); NEUTROPHILS ABSOLUTE AUTO 7.18 K/uL (1.80-7.70); NEUTROPHILS PERCENT AUTO 77.2 % (41.0-71.0); PLATELET COUNT,PLT 138 K/uL (150-400); RED BLOOD CELL COUNT 4.86 M/uL (4.52-5.90); WHITE BLOOD CELL COUNT,WBC 9.31 K/uL (3.9-11.3)
[2024-04-11 06:44] LABS: ALBUMIN 3.3 g/dL (3.4-5.0); CARBON DIOXIDE,CO2 26.8 mmol/L (21.0-32.0); CREATININE 1.3 mg/dL (0.8-1.3); EST CRCL DRUG DOSING (CG) 54.72 mL/min; POTASSIUM,K 3.9 mmol/L (3.5-5.1); PROTEIN TOTAL,TP 6.4 g/dL (6.4-8.2)
[2024-04-11 06:45] LABS: A/G RATIO 1.1 (0.9-1.6); BILIRUBIN TOTAL 1.3 mg/dL (0.2-1.0)
[2024-04-11] MEDS: Isosorbide Mononitrate 30 MG Tab.ER PO SCH (12:09)
[2024-04-11] MEDS ORDERED: Sodium Chloride 0.9% 2.5 ML Syringe FLUSH PRN (13:11)
[2024-04-11] MEDS ORDERED: Sodium Chloride 0.9% 10 ML Syringe FLUSH PRN (13:11)
[2024-04-11] MEDS: Haloperidol Lactate 5 MG/ML SDV IM ONE (17:27)
[2024-04-12] MEDS: Isosorbide Mononitrate 30 MG Tab.ER PO SCH ×2 (01:04→05:54)
[2024-04-12 06:02] LABS: BASOPHILS ABSOLUTE AUTO 0.03 K/uL (0.00-0.20); BASOPHILS PERCENT AUTO 0.5 % (0.0-1.0); EOSINOPHILS ABSOLUTE AUTO 0.07 K/uL (0.00-0.45); EOSINOPHILS PERCENT AUTO 1.1 % (0.0-6.0); HEMATOCRIT 44.9 % (42.0-52.0); HEMOGLOBIN 15.3 g/dL (14.0-18.0); IMMATURE GRAN ABSOLUTE AUTO 0.01 K/uL (0.00-0.05); IMMATURE GRAN PERCENT AUTO 0.2 % (0.0-0.4); LYMPHOCYTES ABSOLUTE AUTO 1.34 K/uL (1.00-4.80); LYMPHOCYTES PERCENT AUTO 20.5 % (24.0-44.0); MEAN CORPUSCULAR HEMOGLOBIN 32.2 pg (28.0-32.0); MEAN CORPUSCULAR HGB CONC 34.1 g/dL (32.0-36.0); MEAN CORPUSCULAR VOLUME 94.5 fL (83.0-99.0); MEAN PLATELET VOLUME 11.3 fL (9.4-12.4); MONOCYTES ABSOLUTE AUTO 0.95 K/uL (0.00-0.80); MONOCYTES PERCENT AUTO 14.5 % (0.0-8.0); NEUTROPHILS ABSOLUTE AUTO 4.14 K/uL (1.80-7.70); NEUTROPHILS PERCENT AUTO 63.2 % (41.0-71.0); PLATELET COUNT,PLT 127 K/uL (150-400); RED BLOOD CELL COUNT 4.75 M/uL (4.52-5.90); WHITE BLOOD CELL COUNT,WBC 6.54 K/uL (3.9-11.3)
[2024-04-12 06:30] LABS: CALCIUM 8.8 mg/dL (8.5-10.1); CARBON DIOXIDE,CO2 26.6 mmol/L (21.0-32.0); CREATININE 1.4 mg/dL (0.8-1.3); EST CRCL DRUG DOSING (CG) 50.81 mL/min; POTASSIUM,K 3.4 mmol/L (3.5-5.1)
[2024-04-12] MEDS: Potassium Chloride 20 MEQ Tab.ER PO ONE (10:53)
[2024-04-12] MEDS ORDERED: Albuterol 0.083% 2.5 MG/3 ML Neb Soln NEB PRN (13:22)
[2024-04-13 05:57] LABS: BASOPHILS ABSOLUTE AUTO 0.04 K/uL (0.00-0.20); BASOPHILS PERCENT AUTO 0.7 % (0.0-1.0); EOSINOPHILS ABSOLUTE AUTO 0.16 K/uL (0.00-0.45); EOSINOPHILS PERCENT AUTO 2.9 % (0.0-6.0); HEMATOCRIT 42.3 % (42.0-52.0); HEMOGLOBIN 14.4 g/dL (14.0-18.0); IMMATURE GRAN ABSOLUTE AUTO 0.01 K/uL (0.00-0.05); IMMATURE GRAN PERCENT AUTO 0.2 % (0.0-0.4); LYMPHOCYTES ABSOLUTE AUTO 1.22 K/uL (1.00-4.80); LYMPHOCYTES PERCENT AUTO 21.8 % (24.0-44.0); MEAN CORPUSCULAR HEMOGLOBIN 32.1 pg (28.0-32.0); MEAN CORPUSCULAR VOLUME 94.4 fL (83.0-99.0); MEAN PLATELET VOLUME 11.5 fL (9.4-12.4); MONOCYTES ABSOLUTE AUTO 0.74 K/uL (0.00-0.80); MONOCYTES PERCENT AUTO 13.2 % (0.0-8.0); NEUTROPHILS ABSOLUTE AUTO 3.42 K/uL (1.80-7.70); NEUTROPHILS PERCENT AUTO 61.2 % (41.0-71.0); PLATELET COUNT,PLT 138 K/uL (150-400); RED BLOOD CELL COUNT 4.48 M/uL (4.52-5.90); WHITE BLOOD CELL COUNT,WBC 5.59 K/uL (3.9-11.3)
[2024-04-13 06:26] LABS: CALCIUM 9.2 mg/dL (8.5-10.1); CARBON DIOXIDE,CO2 30.6 mmol/L (21.0-32.0); CREATININE 1.4 mg/dL (0.8-1.3); EST CRCL DRUG DOSING (CG) 50.81 mL/min; POTASSIUM,K 3.5 mmol/L (3.5-5.1)
[2024-04-13 06:37] LABS: MAGNESIUM 2.2 mg/dL (1.8-2.4)
[2024-04-13 10:57] VITALS: BP 138/96; PULSE 63
== END 2024-04-13 12:00 | disposition home health service (06) | DRG 178 ==
LOC: MW.ED 09:40 → MW.MS 12:59
PROVIDERS: ADMIT Family Medicine; ATTEND Family Medicine
DX: U07.1 COVID-19 (principal); F03.B11 Unspecified dementia, moderate, with agitation; G93.49 Other encephalopathy; F03.B3 Unspecified dementia, moderate, with mood disturbance; I25.2 Old myocardial infarction; Z75.8 Other problems related to medical facilities and other health care; Z66 Do not resuscitate; M19.90 Unspecified osteoarthritis, unspecified site; K21.9 Gastro-esophageal reflux disease without esophagitis; I10 Essential (primary) hypertension; R26.81 Unsteadiness on feet; I25.10 Atherosclerotic heart disease of native coronary artery without angina pectoris; Z96.649 Presence of unspecified artificial hip joint; Z79.01 Long term (current) use of anticoagulants; Z79.82 Long term (current) use of aspirin; Z95.5 Presence of coronary angioplasty implant and graft; Z90.49 Acquired absence of other specified parts of digestive tract; Z87.891 Personal history of nicotine dependence; Z79.899 Other long term (current) drug therapy
CPT/HCPCS: 0240U; 36415; 71045; 80048; 80053; 81001; 83735; 84484; 85025; 93005; 94640; 96360; 97162; 97530; 99285; 93010; A9270-GY; J1630; J1650; J7030; J7620-GY

== ENCOUNTER 2025-04-28 14:13 | Emergency (ER) | payer BC, MEDICARE ==
[2025-04-28 14:27] LABS: BASOPHILS ABSOLUTE AUTO 0.05 K/uL (0.00-0.20); BASOPHILS PERCENT AUTO 0.5 % (0.0-1.0); EOSINOPHILS ABSOLUTE AUTO 0.10 K/uL (0.00-0.45); EOSINOPHILS PERCENT AUTO 1.1 % (0.0-6.0); IMMATURE GRAN ABSOLUTE AUTO 0.03 K/uL (0.00-0.05); IMMATURE GRAN PERCENT AUTO 0.3 % (0.0-0.4); LYMPHOCYTES ABSOLUTE AUTO 0.90 K/uL (1.00-4.80); LYMPHOCYTES PERCENT AUTO 9.6 % (24.0-44.0); MEAN PLATELET VOLUME 11.3 fL (9.4-12.4); MONOCYTES ABSOLUTE AUTO 0.85 K/uL (0.00-0.80); MONOCYTES PERCENT AUTO 9.0 % (0.0-8.0); NEUTROPHILS ABSOLUTE AUTO 7.49 K/uL (1.80-7.70); NEUTROPHILS PERCENT AUTO 79.5 % (41.0-71.0); NRBC ABSOLUTE 0.00 K/uL (0.00-0.02); NRBC PERCENT 0.0 /100WBC (0.0-0.2); PLATELET COUNT,PLT 164 K/uL (150-400); RED BLOOD CELL COUNT 4.51 M/uL (4.52-5.90); WHITE BLOOD CELL COUNT,WBC 9.42 K/uL (3.9-11.3)
[2025-04-28 14:32] VITALS: BP 142/79
[2025-04-28 14:48] LABS: INR 1.04 (0.86-1.11)
[2025-04-28 14:57] LABS: APPEARANCE,URINE CLEAR; GLUCOSE,URINE NEGATIVE (NEGATIVE); OCCULT BLOOD,URINE NEGATIVE (NEGATIVE)
[2025-04-28 15:07] LABS: BLOOD UREA NITROGEN,BUN 25.0 mg/dL (7.0-18.0); CARBON DIOXIDE,CO2 29.5 mmol/L (21.0-32.0); CHLORIDE,CL 106.0 mmol/L (98-107); CREATININE 1.3 mg/dL (0.8-1.3); EST CRCL DRUG DOSING (CG) 59.35 mL/min; GLUCOSE RANDOM 103.0 mg/dL (74-106); POTASSIUM,K 4.4 mmol/L (3.5-5.1); SODIUM,NA 144.0 mmol/L (136-148)
[2025-04-28 15:16] LABS: ESTIMATED GFR 57.0 mL/min (>60)
[2025-04-28 16:57] VITALS: PULSE 83
== END 2025-04-28 16:58 | disposition home health service (06) ==
LOC: MW.ED 14:13
DX: Z04.3 Encounter for examination and observation following other accident (principal); I25.2 Old myocardial infarction; Z79.82 Long term (current) use of aspirin; Z79.899 Other long term (current) drug therapy; Z90.49 Acquired absence of other specified parts of digestive tract
CPT/HCPCS: 36415; 70450; 70450-26; 72125; 72125-26; 73502-26-LT; 73502-LT; 80048; 81003; 83735; 84484; 85025; 85610; 93005; 99284; 99285

== ENCOUNTER 2025-05-18 12:42 | Inpatient (IN) | payer MEDICARE ==
[2025-05-18] MEDS ORDERED: Sodium Chloride 0.9% 2.5 ML Syringe FLUSH PRN ×2 (12:53→16:38)
[2025-05-18] MEDS ORDERED: Sodium Chloride 0.9% 10 ML Syringe FLUSH PRN ×2 (12:53→16:38)
[2025-05-18 13:27] LABS: MEAN PLATELET VOLUME 11.4 fL (9.4-12.4); NRBC ABSOLUTE 0.00 K/uL (0.00-0.02); NRBC PERCENT 0.0 /100WBC (0.0-0.2); PLATELET COUNT,PLT 182 K/uL (150-400); RED BLOOD CELL COUNT 5.36 M/uL (4.52-5.90); WHITE BLOOD CELL COUNT,WBC 17.28 K/uL (3.9-11.3)
[2025-05-18 13:35] LABS: INR 1.08 (0.86-1.11); PTT,PARTIAL THROMBOPLSTIN TIME 27.5 SEC (23.9-30.7)
[2025-05-18 13:56] LABS: A/G RATIO 0.8 (0.9-1.6); ALANINE AMINOTRANSFERASE,ALT 34.0 IU/L (14-63); ASPARTATE AMNIOTRANSFERASE,AST 37.0 IU/L (15-37); BILIRUBIN TOTAL 2.8 mg/dL (0.2-1.0); BLOOD UREA NITROGEN,BUN 34.0 mg/dL (7.0-18.0); CARBON DIOXIDE,CO2 27.5 mmol/L (21.0-32.0); CHLORIDE,CL 106.0 mmol/L (98-107); CREATININE 1.6 mg/dL (0.8-1.3); EST CRCL DRUG DOSING (CG) 48.22 mL/min; GLUCOSE RANDOM 146.0 mg/dL (74-106); POTASSIUM,K 3.6 mmol/L (3.5-5.1); PROTEIN TOTAL,TP 7.8 g/dL (6.4-8.2); SODIUM,NA 147.0 mmol/L (136-148)
[2025-05-18 14:00] LABS: ESTIMATED GFR 44.0 mL/min (>60); LACTIC ACID 1.8 mmol/L (0.4-2.0)
[2025-05-18 14:03] LABS: BASOPHILS ABSOLUTE MAN 0.00 K/uL (0.00-0.20); BASOPHILS PERCENT MAN 0 % (0-1); EOSINOPHILS ABSOLUTE MAN 0.00 K/uL (0.00-0.45); EOSINOPHILS PERCENT MAN 0 % (0-6); LYMPHOCYTES ABSOLUTE MAN 0.35 K/uL (1.00-4.80); LYMPHOCYTES PERCENT MAN 2 % (24-44); MONOCYTES ABSOLUTE MAN 2.25 K/uL (0.00-0.80); MONOCYTES PERCENT MAN 13 % (0-8); SEG NEUTROPHILS ABSOLUTE MAN 14.69 K/uL (1.80-7.70); SEG NEUTROPHILS PERCENT MAN 85 % (41-71)
[2025-05-18 14:16] LABS: GLUCOSE,URINE NEGATIVE (NEGATIVE); OCCULT BLOOD,URINE LARGE (NEGATIVE)
[2025-05-18 14:34] LABS: APPEARANCE,URINE HAZY
[2025-05-18 14:35] LABS: EPITHELIAL CELLS,URINE RARE (NONE-FEW)
[2025-05-18] MEDS: Iopamidol 755 MG/ML 500 ML Multipack Bottle IVPUSH STA (14:53)
[2025-05-18] MEDS: cefTRIAXone 1 GM in Water For Injection, Sterile 10 ML IVPUSH ONE ×2 (15:59→17:21)
[2025-05-18] MEDS ORDERED: Ondansetron 4 MG/2 ML SDV IVPUSH PRN (16:38)
[2025-05-18] MEDS: Pneumococcal Polyvalent-23 Vaccine 0.5 ML SDV IM ONE (19:14)
[2025-05-19 05:28] LABS: BASOPHILS ABSOLUTE AUTO 0.05 K/uL (0.00-0.20); BASOPHILS PERCENT AUTO 0.4 % (0.0-1.0); EOSINOPHILS ABSOLUTE AUTO 0.31 K/uL (0.00-0.45); EOSINOPHILS PERCENT AUTO 2.6 % (0.0-6.0); IMMATURE GRAN ABSOLUTE AUTO 0.05 K/uL (0.00-0.05); IMMATURE GRAN PERCENT AUTO 0.4 % (0.0-0.4); LYMPHOCYTES ABSOLUTE AUTO 0.99 K/uL (1.00-4.80); LYMPHOCYTES PERCENT AUTO 8.4 % (24.0-44.0); MEAN PLATELET VOLUME 11.5 fL (9.4-12.4); MONOCYTES ABSOLUTE AUTO 1.35 K/uL (0.00-0.80); MONOCYTES PERCENT AUTO 11.5 % (0.0-8.0); NEUTROPHILS ABSOLUTE AUTO 9.02 K/uL (1.80-7.70); NEUTROPHILS PERCENT AUTO 76.7 % (41.0-71.0); NRBC ABSOLUTE 0.00 K/uL (0.00-0.02); NRBC PERCENT 0.0 /100WBC (0.0-0.2); PLATELET COUNT,PLT 153 K/uL (150-400); RED BLOOD CELL COUNT 4.34 M/uL (4.52-5.90); WHITE BLOOD CELL COUNT,WBC 11.77 K/uL (3.9-11.3)
[2025-05-19 05:49] LABS: BLOOD UREA NITROGEN,BUN 31.0 mg/dL (7.0-18.0); CARBON DIOXIDE,CO2 28.2 mmol/L (21.0-32.0); CHLORIDE,CL 114.0 mmol/L (98-107); CREATININE 1.3 mg/dL (0.8-1.3); EST CRCL DRUG DOSING (CG) 59.35 mL/min; GLUCOSE RANDOM 101.0 mg/dL (74-106); PHOSPHORUS 3.1 mg/dL (2.6-4.7); POTASSIUM,K 3.3 mmol/L (3.5-5.1); SODIUM,NA 152.0 mmol/L (136-148)
[2025-05-19 05:50] LABS: ESTIMATED GFR 57.0 mL/min (>60)
[2025-05-19] MEDS: Prasugrel Hcl [Effient] 10 MG Tablet PO SCH (10:32)
[2025-05-19] MEDS: cefTRIAXone 2 GM in Water For Injection, Sterile 20 ML IVPUSH SCH (11:09)
[2025-05-19] MEDS: Potassium Chloride 10 MEQ Tab.ER PO ONE (11:13)
[2025-05-20 06:47] LABS: BASOPHILS ABSOLUTE AUTO 0.05 K/uL (0.00-0.20); BASOPHILS PERCENT AUTO 0.6 % (0.0-1.0); EOSINOPHILS ABSOLUTE AUTO 0.48 K/uL (0.00-0.45); EOSINOPHILS PERCENT AUTO 5.4 % (0.0-6.0); IMMATURE GRAN ABSOLUTE AUTO 0.03 K/uL (0.00-0.05); IMMATURE GRAN PERCENT AUTO 0.3 % (0.0-0.4); LYMPHOCYTES ABSOLUTE AUTO 0.98 K/uL (1.00-4.80); LYMPHOCYTES PERCENT AUTO 11.1 % (24.0-44.0); MEAN PLATELET VOLUME 11.0 fL (9.4-12.4); MONOCYTES ABSOLUTE AUTO 0.89 K/uL (0.00-0.80); MONOCYTES PERCENT AUTO 10.1 % (0.0-8.0); NEUTROPHILS ABSOLUTE AUTO 6.39 K/uL (1.80-7.70); NEUTROPHILS PERCENT AUTO 72.5 % (41.0-71.0); NRBC ABSOLUTE 0.00 K/uL (0.00-0.02); NRBC PERCENT 0.0 /100WBC (0.0-0.2); PLATELET COUNT,PLT 151 K/uL (150-400); RED BLOOD CELL COUNT 4.26 M/uL (4.52-5.90); WHITE BLOOD CELL COUNT,WBC 8.82 K/uL (3.9-11.3)
[2025-05-20 07:13] LABS: BLOOD UREA NITROGEN,BUN 20.0 mg/dL (7.0-18.0); CARBON DIOXIDE,CO2 29.5 mmol/L (21.0-32.0); CHLORIDE,CL 110.0 mmol/L (98-107); CREATININE 0.9 mg/dL (0.8-1.3); EST CRCL DRUG DOSING (CG) 85.73 mL/min; GLUCOSE RANDOM 107.0 mg/dL (74-106); PHOSPHORUS 3.2 mg/dL (2.6-4.7); POTASSIUM,K 2.8 mmol/L (3.5-5.1); SODIUM,NA 148.0 mmol/L (136-148)
[2025-05-20 07:16] LABS: ESTIMATED GFR 89.0 mL/min (>60)
[2025-05-20] MEDS: Prasugrel Hcl [Effient] 10 MG Tablet PO SCH (13:10)
[2025-05-21 07:56] LABS: BASOPHILS ABSOLUTE AUTO 0.04 K/uL (0.00-0.20); BASOPHILS PERCENT AUTO 0.5 % (0.0-1.0); EOSINOPHILS ABSOLUTE AUTO 0.39 K/uL (0.00-0.45); EOSINOPHILS PERCENT AUTO 5.1 % (0.0-6.0); IMMATURE GRAN ABSOLUTE AUTO 0.08 K/uL (0.00-0.05); IMMATURE GRAN PERCENT AUTO 1.0 % (0.0-0.4); LYMPHOCYTES ABSOLUTE AUTO 1.02 K/uL (1.00-4.80); LYMPHOCYTES PERCENT AUTO 13.2 % (24.0-44.0); MEAN PLATELET VOLUME 11.3 fL (9.4-12.4); MONOCYTES ABSOLUTE AUTO 0.87 K/uL (0.00-0.80); MONOCYTES PERCENT AUTO 11.3 % (0.0-8.0); NEUTROPHILS ABSOLUTE AUTO 5.30 K/uL (1.80-7.70); NEUTROPHILS PERCENT AUTO 68.9 % (41.0-71.0); NRBC ABSOLUTE 0.00 K/uL (0.00-0.02); NRBC PERCENT 0.0 /100WBC (0.0-0.2); PLATELET COUNT,PLT 165 K/uL (150-400); RED BLOOD CELL COUNT 4.08 M/uL (4.52-5.90); WHITE BLOOD CELL COUNT,WBC 7.70 K/uL (3.9-11.3)
[2025-05-21 08:19] LABS: A/G RATIO 0.7 (0.9-1.6); ALANINE AMINOTRANSFERASE,ALT 61.0 IU/L (14-63); ASPARTATE AMNIOTRANSFERASE,AST 60.0 IU/L (15-37); BILIRUBIN TOTAL 1.5 mg/dL (0.2-1.0); BLOOD UREA NITROGEN,BUN 16.0 mg/dL (7.0-18.0); CARBON DIOXIDE,CO2 26.9 mmol/L (21.0-32.0); CHLORIDE,CL 109.0 mmol/L (98-107); CREATININE 1.0 mg/dL (0.8-1.3); EST CRCL DRUG DOSING (CG) 77.16 mL/min; ESTIMATED GFR 78.0 mL/min (>60); GLUCOSE RANDOM 125.0 mg/dL (74-106); PHOSPHORUS 3.4 mg/dL (2.6-4.7); POTASSIUM,K 3.1 mmol/L (3.5-5.1); PROTEIN TOTAL,TP 6.0 g/dL (6.4-8.2); SODIUM,NA 146.0 mmol/L (136-148)
[2025-05-22 06:15] LABS: BASOPHILS ABSOLUTE AUTO 0.05 K/uL (0.00-0.20); BASOPHILS PERCENT AUTO 0.6 % (0.0-1.0); EOSINOPHILS ABSOLUTE AUTO 0.39 K/uL (0.00-0.45); EOSINOPHILS PERCENT AUTO 5.1 % (0.0-6.0); IMMATURE GRAN ABSOLUTE AUTO 0.02 K/uL (0.00-0.05); IMMATURE GRAN PERCENT AUTO 0.3 % (0.0-0.4); LYMPHOCYTES ABSOLUTE AUTO 1.00 K/uL (1.00-4.80); LYMPHOCYTES PERCENT AUTO 13.0 % (24.0-44.0); MEAN PLATELET VOLUME 10.9 fL (9.4-12.4); MONOCYTES ABSOLUTE AUTO 0.78 K/uL (0.00-0.80); MONOCYTES PERCENT AUTO 10.1 % (0.0-8.0); NEUTROPHILS ABSOLUTE AUTO 5.47 K/uL (1.80-7.70); NEUTROPHILS PERCENT AUTO 70.9 % (41.0-71.0); NRBC ABSOLUTE 0.00 K/uL (0.00-0.02); NRBC PERCENT 0.0 /100WBC (0.0-0.2); PLATELET COUNT,PLT 157 K/uL (150-400); RED BLOOD CELL COUNT 3.95 M/uL (4.52-5.90); WHITE BLOOD CELL COUNT,WBC 7.71 K/uL (3.9-11.3)
[2025-05-22 06:36] LABS: BLOOD UREA NITROGEN,BUN 13.0 mg/dL (7.0-18.0); CARBON DIOXIDE,CO2 29.1 mmol/L (21.0-32.0); CHLORIDE,CL 107.0 mmol/L (98-107); CREATININE 1.0 mg/dL (0.8-1.3); GLUCOSE RANDOM 109.0 mg/dL (74-106); POTASSIUM,K 3.2 mmol/L (3.5-5.1); SODIUM,NA 145.0 mmol/L (136-148)
[2025-05-22 06:37] LABS: EST CRCL DRUG DOSING (CG) 77.16 mL/min
[2025-05-22 06:42] LABS: ESTIMATED GFR 78.0 mL/min (>60)
[2025-05-22] MEDS: Potassium Chloride 20 MEQ Tab.ER PO ONE (14:37)
[2025-05-22 17:32] VITALS: BP 156/76; PULSE 85
== END 2025-05-22 20:29 | disposition home health service (06) | DRG 690 ==
LOC: MW.ED 12:42 → MW.MS 16:02
PROVIDERS: ADMIT Family Medicine; ATTEND Family Medicine
DX: N10 Acute pyelonephritis (principal); F03.93 Unspecified dementia, unspecified severity, with mood disturbance; E87.0 Hyperosmolality and hypernatremia; R41.82 Altered mental status, unspecified; N28.89 Other specified disorders of kidney and ureter; R19.5 Other fecal abnormalities; Z75.3 Unavailability and inaccessibility of health-care facilities; Z66 Do not resuscitate; E86.0 Dehydration; I25.10 Atherosclerotic heart disease of native coronary artery without angina pectoris; K21.9 Gastro-esophageal reflux disease without esophagitis; I10 Essential (primary) hypertension; N13.9 Obstructive and reflux uropathy, unspecified; E80.6 Other disorders of bilirubin metabolism; E87.6 Hypokalemia; D72.829 Elevated white blood cell count, unspecified; M19.90 Unspecified osteoarthritis, unspecified site; H40.9 Unspecified glaucoma; H91.90 Unspecified hearing loss, unspecified ear; H54.7 Unspecified visual loss; I25.2 Old myocardial infarction; Z96.649 Presence of unspecified artificial hip joint; Z95.5 Presence of coronary angioplasty implant and graft; Z85.828 Personal history of other malignant neoplasm of skin; Z98.49 Cataract extraction status, unspecified eye; Z79.899 Other long term (current) drug therapy; Z79.82 Long term (current) use of aspirin; Z90.49 Acquired absence of other specified parts of digestive tract; Z23 Encounter for immunization
CPT/HCPCS: 36415; 51701; 51702; 70450; 70450-26; 71045; 71045-26; 71260; 71260-26; 74177; 74177-26; 80048; 80053; 81001; 83605; 83690; 83735; 84100; 85025; 85610; 85730; 86850; 86900; 86901; 87040; 87086; 87426-QW; 93005; 93010; 96361; 96374; 97163-GP; 97165-GO; 99222; 99232; 99233; 99238; 99285; 99285-25; A4216; A9270-GY; J0696; J2270; J3480; J7030; J7050; J7070; Q9967